=== PATIENT | male | born 1980 | race Caucasian/White ===

== ENCOUNTER 2022-03-26 22:03 | Emergency (ER) | payer OTHER ==
[~2022-03-26 22:03] MED LIST: FLEXERIL10 MG PO; MEDROL 4MG DOSEP4 MG PO
[2022-03-26 22:53] LABS: BASOPHIL 0.7 % (0-2); EOSINOPHIL 0.1 % (0-5); HCT 44.5 % (42.0-52.0); HGB 14.9 g/dl (13.2-18.0); LYMPHOCYTE 12.5 % (15-48); MCH 28.1 pg (25.0-31.0); MCHC 33.5 g/dL (32.0-36.0); MONOCYTE 5.3 % (0-12); MPV 11.6 fL (6.0-9.5); NEUTROPHIL 80.9 % (41-80); NRBC 0; PLT 278 K/uL (150-400); RDW 12.1 % (11.5-14.0); WBC 9.4 K/uL (4.0-10.5)
[2022-03-26 23:03] LABS: BILIRUBIN NEGATIVE (NEGATIVE); BLOOD 3+ Ery/uL (NEGATIVE); CLARITY CLEAR (CLEAR); COLOR YELLOW (YELLOW); GLUCOSE (U) NORMAL (NORMAL); LEUKOCYTES NEGATIVE Leu/uL (NEGATIVE); NITRITE NEGATIVE (NEGATIVE); PROTEIN TRACE (LOW) mg/dL (NEGATIVE); UROBILINOGEN 0.2 mg/dL (0.2-1.0); pH 7.5 (5.0-9.0)
[2022-03-26 23:10] LABS: ALBUMIN 4.1 g/dL (3.4-5.0); BUN/CREAT RATIO (CALC) 13.1 RATIO; CREATININE 0.99 mg/dL (0.67-1.17); GLOBULIN (CALCULATION) 3.9 g/dL
[2022-03-26 23:22] LABS: BACTERIA TRACE; MUCOUS TRACE; SQUAMOUS EPITHELIAL CELLS RARE; URINARY RBC TNTC; URINARY WBC RARE
[2022-03-27] MEDS ORDERED: ONDANSETRON ODT4 MG PO (00:56)
[2022-03-27] MEDS ORDERED: FLOMAX 0.4 MG0.4 MG PO (00:56)
[2022-03-27] MEDS ORDERED: NORCO 5-325 TA1 EACH PO (00:56)
[2022-03-27] MEDS ORDERED: NAPROXEN500 MG PO (00:56)
== END 2022-03-27 01:06 | disposition home or self-care (01) ==
LOC: FER 22:03
PROVIDERS: Emergency Medicine
DX: N13.2 Hydronephrosis with renal and ureteral calculous obstruction (principal)
CPT/HCPCS: 36415; 80053; 81001; 85025; J1170; J1885; J2405; J7030